=== PATIENT | female | born 1980 | race Caucasian/White ===

== ENCOUNTER 2020-04-18 18:55 | Emergency (ER) | payer SELFPAY ==
[2020-04-18 19:00] VITALS: BP 126/72; PULSE 93; RESP 18; TEMP 36.9; O2SAT 98; BMI 23.3
--- NOTE | 2020-04-18 19:14 | XR_ITS ---
WS: [id number] Exam: XR chest 1V portable [id number] Date/Time of Exam: 04/18/2020 7:14 PM Reason For Exam: CP No priors. The lungs are clear and fully inflated. Heart size is normal. No pleural effusions. There is fullness of the superior mediastinum on the right. The bony thorax is unremarkable. Recommendations: Comparison with any outside chest radiographs would be helpful for further evaluatio n. XR/XR chest 1V portable [id number] IMPRESSION: 1. No acute cardiopulmonary finding. 2. Mild prominence of the superior mediastinum on the right. This could represe nt a right-sided aortic arch however a mass or lymphadenopathy could have simil ar appearance.
--- NOTE | 2020-04-18 19:14 | CTR_ITS ---
PROCEDURE INFORMATION: Exam: CT Head Without Contrast Exam date and time: 04/18/2020 7:41 PM Age: 39 years old Clinical indication: Pain; Dizziness; Headache; Patient HX: PT scanned x 2 due to motion; Additional info: Muscle contractures TECHNIQUE: Imaging protocol: Computed tomography of the head without contrast. Axial, coronal and sagittal reformatted images were created and reviewed. Radiation optimization: All CT scans at this facility use at least one of these dose optimization techniques: automated exposure control; mA and/or kV adjustment per patient size (includes targeted exams where dose is matched to clinical indication); or iterative reconstruction. COMPARISON: No relevant prior studies available. RADIATION DOSE METRICS: Total DLP (mGy-cm): 1443.85 FINDINGS: Brain: No CT evidence of acute intracranial hemorrhage or acute territorial infarction. No significant mass effect or midline shift. Basal cisterns patent. Cerebral ventricles: Normal in size and configuration. Bones/joints: No acute osseous abnormality. Paranasal sinuses: Mild ethmoid mucosal thickening. Mastoid air cells: Grossly unremarkable. Soft tissues: Grossly unremarkable. CT/CT head wo con* [id number] IMPRESSION: 1[address] No CT evidence of acute intracranial pathology. 2. Additional findings, as above. Radiation Dose CTDIVOL = (mGy): DLP = 1443.85 (mGy-cm)
--- NOTE | 2020-04-18 19:16 | ED_ITS ---
HPI - Anxiety General: Chief Complaint: Anxiety Stated Complaint: pressure in chest, arms and hands seizing up, Time Seen by Provider: 04/18/20 19:08 History of Present Illness: HPI narrative: Patient arrives via EMS from [facility]. Patient relates that she had woke up this morning feeling pretty stressed had some heaviness in her chest hands and arms were cooperating for a while she called EMS they come out did a well person check said her just for her to breathe better. Patient went throughout the day did not really improve said he had to carry her to the bathroom because her legs were not working. They brought her into the [facility] Jonatan BILLS sent her here for possible stroke work-up. Patient states she is drinks 1/5 alcohol every couple days been to this for about 6 months. Says she has stress going on her life due to problem with one of their children causing problems. Occasionally smokes pot. Says she feels much better presently denies chest pain shortness of breath or problems with her hands or feet says she does feel anxious patient did smoke pot this morning not synthetic MD complaint: anxiety Onset (ago): day(s) (1) Symptoms: other (Said felt like her hands were drawn up and she can use them earlier in her legs were very weak.) Severity: mild Quality: improving Place: home History of similar episodes: No Provoking factors: emotional stress Relieving factors: nothing Exacerbating factors: nothing Associated symptoms: Deny chest pain, chills, fever(s), headache(s), nausea or vomiting Review of Systems Const: Denies: fever(s), chills or body aches Eyes: Denies: change in vision or blurry vision ENMT: Denies: throat pain or nasal congestion Card: Denies: chest pain or dyspnea on exertion Resp: Denies: dyspnea, productive cough or non-productive cough GI: Denies: abdominal pain, nausea or vomiting Musc: Denies: extremity pain Skin/Breast: Reports: other (And stay red but she says this is from doing dishes with bleach and water.); Denies: rash Neuro: Denies: headache(s) Psych: Denies: anxiety or depression Brady/Lymph: Denies: easy bruising PFS ED PFSH: Medical History (Updated 04/18/20 @ 21:27 by AUSTIN Howell) Stroke-like symptoms Physical Exam Const: COMMON NORMALS: no acute distress, average body habitus and patient oriented x3 HENMT: COMMON NORMALS: normocephalic HEAD & SCALP: normal to inspection and normocephalic FACE & SINUS: normal facial exam Eye: COMMON NORMALS: conjunctivae normal GENERAL EYE: appearance normal, both eyes and all related structures CONJUNCTIVA: Yes conjunctivae normal Neck/C-Spine: COMMON NORMALS: no JVD Chest: COMMONS NORMALS: normal inspection of the chest Resp: COMMON NORMALS: normal respiratory effort and clear to auscultation bilaterally AUSCULTATION: clear to auscultation bilaterally Cardio: COMMON NORMALS: no JVD, regular rate and regular rhythm RATE: regular rate RHYTHM: regular rhythm GI: COMMON NORMALS: Normal to inspection, nondistended, normoactive bowel sounds present Extremity: COMMON NORMALS: normal to inspection and full ROM Neuro: COMMON NORMALS: patient oriented x3 Skin: GENERAL SKIN EXAM: other (Hands are red up to the wrist area with a straight line. On the wrist area.) Course Vital Signs: Vital signs: Vital Signs Temperature 98.5 F 04/18/20 19:00 Pulse Rate 91 04/18/20 21:49 Respiratory Rate 20 H 04/18/20 21:49 Blood Pressure 118/66 04/18/20 21:49 Pulse Oximetry 96 04/18/20 21:49 MDM - Anxiety MDM Narrative: Medical decision making narrative: Apparently now her pot might have been synthetic that she did smoke this morning so her symptoms consistent with I think she got hose some bad marijuana possibly. Patient follow-up primary care provider return here if worse with her symptoms. Advised her that she should quit drinking and quit smoking pot. EKG Data^: EKG 1: EKG interpretation date: 04/18/20 EKG interpretation time: 19:24 Interpretation: Head CT 04/18/20 19:14 IMPRESSION: 1. No CT evidence of acute intracranial pathology. 2. Additional findings, as above. Radiation Dose CTDIVOL = (mGy): DLP = 1443.85 (mGy-cm) Computer generated interpretation: Sinus rhythm ventricular rate 93/min KS interval 156 QRS durations 85 QT 357 Other EKG comments: Head CT 04/18/20 19:14 IMPRESSION: 1[address] No CT evidence of acute intracranial pathology. 2. Additional findings, as above. Radiation Dose CTDIVOL = (mGy): DLP = 1443.85 (mGy-cm) Lab Data: Labs: Lab Results 04/18/20 04/18/20 04/18/20 Range/Units 19:37 19:37 20:16 WBC Cancelled Corrected WBC Cancelled RBC Cancelled Hgb Cancelled Hct Cancelled MCV Cancelled MCH Cancelled MCHC Cancelled RDW Cancelled Plt Count Cancelled MPV Cancelled Gran % Cancelled Neut % (Auto) Cancelled Lymph % (Auto) Cancelled [place] % (Auto) Cancelled Eos % (Auto) Cancelled Baso % (Auto) Cancelled Neut # (Auto) Cancelled Lymph # (Auto) Cancelled [place] # (Auto) Cancelled Eos # (Auto) Cancelled Baso # (Auto) Cancelled Absolute Gran (aut o) Cancelled Nucleated RBC % (a uto) Cancelled Nucleated RBCs # Cancelled Sodium 129 L (136-145) mmol/L Potassium 4.0 (3.5-5.1) mmol/L Chloride 93 L (98-107) mmol/L Carbon Dioxide 18 L (22-29) mmol/L Anion Gap 22.0 H (5-19) BUN 6 (6-20) mg/dL Creatinine 0.6 (0.5-0.9) mg/dL GFR Calculation 112.5 (90-130) mL/min Glucose 69 (65-115) mg/dL Calculated Osmolal ity 264 L (285-295) mOsm/k g Calcium 9.6 (8.5-10.5) mg/dL Total Bilirubin 0.7 (0.15-1.2) mg/dL AST 71 H (0-32) U/L ALT 80 H (0-33) U/L Alkaline Phosphata se 35 (35-105) IU/L Total Protein 7.2 (6.6-8.7) g/dL Albumin 4.8 (3.5-5.2) g/dL Globulin 2.4 (1.3-4.6) g/dL HCG, Qual Negative (Negative) Urine Color (Yellow) Urine Appearance (CLEAR) Urine pH (5-7) Ur Specific Gravit y (1.005-1.030) Urine Protein (Negative) Urine Glucose (UA) (Normal) Urine Ketones (Negative) Urine Blood (Negative) Urine Nitrate (Negative) Urine Bilirubin (Negative) Urine Urobilinogen (Negative) mg/dL Ur Leukocyte Ann ase (Negative) Urine Opiates Scre en (Negative) ng/mL Ur Barbiturates Sc reen (Negative) ng/mL Ur Phencyclidine S crn (Negative) ng/mL Ur Amphetamines Sc reen (Negative) ng/mL U Benzodiazepines Scrn (Negative) ng/mL Urine Cocaine Scre en (Negative) ng/mL U Marijuana (THC) Screen (Negative) ng/mL Ethyl Alcohol < 10 (0-10) mg/dL 04/18/20 04/18/20 04/18/20 Range/Units 20:16 20:16 20:16 WBC 12.5 H Corrected WBC RBC 4.25 Hgb 14.1 Hct 40.1 MCV 94.4 MCH 33.2 MCHC 35.2 RDW 12.5 Plt Count 276 MPV 10.8 H Gran % Neut % (Auto) 80.0 Lymph % (Auto) 12.9 [place] % (Auto) 6.5 Eos % (Auto) 0.1 Baso % (Auto) 0.2 Neut # (Auto) 10.00 H Lymph # (Auto) 1.6 [place] # (Auto) 0.8 Eos # (Auto) 0.0 Baso # (Auto) 0.0 Absolute Gran (aut o) Nucleated RBC % (a uto) 0 Nucleated RBCs # 0.0 Sodium (136-145) mmol/L Potassium (3.5-5.1) mmol/L Chloride (98-107) mmol/L Carbon Dioxide (22-29) mmol/L Anion Gap (5-19) BUN (6-20) mg/dL Creatinine (0.5-0.9) mg/dL GFR Calculation (90-130) mL/min Glucose (65-115) mg/dL Calculated Osmolal ity (285-295) mOsm/k g Calcium (8.5-10.5) mg/dL Total Bilirubin (0.15-1.2) mg/dL AST (0-32) U/L ALT (0-33) U/L Alkaline Phosphata se (35-105) IU/L Total Protein (6.6-8.7) g/dL Albumin (3.5-5.2) g/dL Globulin (1.3-4.6) g/dL HCG, Qual (Negative) Urine Color Yellow (Yellow) Urine Appearance Clear (CLEAR) Urine pH 5.0 (5-7) Ur Specific Gravit y 1.005 (1.005-1.030) Urine Protein Neg (Negative) Urine Glucose (UA) Norm (Normal) Urine Ketones 2+ H (Negative) Urine Blood Neg (Negative) Urine Nitrate Negative (Negative) Urine Bilirubin Neg (Negative) Urine Urobilinogen Norm (Negative) mg/dL Ur Leukocyte Ann ase Negative (Negative) Urine Opiates Scre en Negative (Negative) ng/mL Ur Barbiturates Sc reen Negative (Negative) ng/mL Ur Phencyclidine S crn Negative (Negative) ng/mL Ur Amphetamines Sc reen Negative (Negative) ng/mL U Benzodiazepines Scrn Negative (Negative) ng/mL Urine Cocaine Scre en Negative (Negative) ng/mL U Marijuana (THC) Screen Positive H (Negative) ng/mL Ethyl Alcohol (0-10) mg/dL Discharge Plan Discharge Patient Disposition: Home Clinical Impression: Dehydration, Acute hyponatremia, Marijuana abuse, Anxiety Condition: Stable Prescriptions: New Xanax 0.25 mg tablet 0.25 mg PO TID PRN (Reason: anxiety) Qty: 10 RF: 0 Discharge Orders: Discharge Order (Routine); Ordered 04/18/20 Ordered By: Kareem Ray Discharge Diet: Usual diet Discharge Activity: Increase activity as tolerated Patient Instructions: Dehydration (ED) Activity Restrictions/Additional Instructions: Make sure you drink plenty of fluids. Try and stop marijuana use and cut back drinking lemonade alcohol altogether. Eat a good diet. Follow-up your family medical provider if no significant improvement. Discharge Date/Time: 04/18/20 21:55 Coding Level of Care Code ED [employer] Fwd Exam Comprehensive
[2020-04-18 20:06] LABS: Alanine Aminotransferase 80 U/L (0-33); Albumin Level 4.8 g/dL (3.5-5.2); Alkaline Phosphatase 35 IU/L (35-105); Aspartate Amino Transferase 71 U/L (0-32); Blood Urea Nitrogen 6 mg/dL (6-20); Calcium 9.6 mg/dL (8.5-10.5); Carbon Dioxide 18 mmol/L (22-29); Chloride 93 mmol/L (98-107); Globulin 2.4 g/dL (1.3-4.6); Glomerular Filtration Rate 112.5 mL/min (90-130); Glucose 69 mg/dL (65-115); Osmolality Calculated 264 mOsm/kg (285-295); Sodium 129 mmol/L (136-145); Total Bilirubin 0.7 mg/dL (0.15-1.2); Total Protein 7.2 g/dL (6.6-8.7)
[2020-04-18 20:16] LABS: Alcohol Level < 10 mg/dL (0-10)
[2020-04-18 20:35] LABS: Add Urine Microscopic? NO
[2020-04-18] MEDS: sodium chloride 0.9% 1,000 ML 999 ML IV (20:42)
[2020-04-18] MEDS: LORazepam 2 mg Tablet PO (20:42)
[2020-04-18 20:48] LABS: Basophils % 0.2 %; Eosinophils % 0.1 %; Hematocrit 40.1 % (37.0-47.0); Hemoglobin 14.1 g/dL (11.5-15.3); Lymphocytes # 1.6 10^3/uL (0.8-4.8); Lymphocytes % 12.9 %; Mean Corpuscular HGB Conc 35.2 g/dL (30.0-36.0); Mean Corpuscular Hemoglobin 33.2 pg (28.0-34.0); Mean Corpuscular Volume 94.4 fL (81-99); Mean Platelet Volume 10.8 fL (7.4-10.4); Monocytes # 0.8 10^3/uL (0.2-0.9); Monocytes % 6.5 %; Nucleated Red Blood Cells % 0 %; Platelet Count 276 10^3/cmm (130-400); Red Blood Count 4.25 10^6/uL (4.1-5.3); Red Cell Distribution Width 12.5 % (12.1-15.1); White Blood Count 12.5 10^3/uL (4.0-10.0)
[2020-04-18 20:55] VITALS: BP 144/99; PULSE 91; RESP 19; O2SAT 99
[2020-04-18 21:12] LABS: Amphetamines Screen Urine Negative (Negative); Barbiturates Screen Urine Negative (Negative); Benzodiazepines Screen Urine Negative (Negative); Cocaine Screen Urine Negative (Negative); Opiate Screen Urine Negative (Negative); PCP Screen Urine Negative (Negative); THC Screen Urine Positive (Negative)
[2020-04-18 21:16] LABS: HCG Qualitative Urine. Negative (Negative)
[2020-04-18 21:19] LABS: Bilirubin Urine Neg (Negative); Blood Urine Neg (Negative); Glucose Urine UA Norm (Normal); Ketones Urine 2+ (Negative); Nitrate Urine Negative (Negative); Protein Urine Neg (Negative); Specific Gravity, Urine 1.005 (1.005-1.030); Urine Appearance Clear (CLEAR); Urine Color Yellow (Yellow)
[2020-04-18 21:20] LABS: Leukocyte Esterase Urine Negative (Negative); Urobilinogen Urine Norm (Negative)
[2020-04-18 21:49] VITALS: BP 118/66; PULSE 91; RESP 20; O2SAT 96
== END 2020-04-18 21:55 | disposition home or self-care (01) ==
PROVIDERS: Emergency Provider Nurse Practitioner Family
DX: F41.9 Anxiety disorder, unspecified (principal); F12.10 Cannabis abuse, uncomplicated; E87.1 Hypo-osmolality and hyponatremia; E86.0 Dehydration
CPT/HCPCS: 12345; 70450; 71045; 80053; 80306; 80307; 81003; 81025; 85025; 96360; 99283; J7030